=== PATIENT | female | born 1980 | race African-American/Black ===

== ENCOUNTER → 2020-04-22 | Outpatient (CLI) | payer OTHER ==
--- NOTE | 2020-04-22 11:43 | DIREP ---
PROCEDURE:US OB 2 3TRI DETAILED TRANSABD COMPARISON:None. INDICATIONS:FIRST , UNSPECIFIED TRIMESTER TECHNIQUE:Transabdominal sonography of the gravid uterus was performed. FINDINGS: NUMBER: Single. POSITION: Cephalic. AMNIOTIC FLUID VOLUME: KATHI/LVP: 1.7 cm oligohydramnios PLACENTAL LOCATION: Anterior. No previa. CERVICAL LENGTH: Normal transabdominal appearance. HEART RATE: 147 bpm BIPARIETAL DIAMETER: 4.5 cm, (19 weeks, 3 days) HEAD CIRCUMFERENCE: 17.2 cm,(19 weeks, 5 days) ABD CIRCUMFERENCE: 26.3 cm,(30 weeks, 3 days) FEMUR LENGTH:2.9 cm, (18 weeks, 6 days) EFW: 733.0 g ANATOMY: CEREBELLUM: 2.1 cm NUCHAL FOLD: Abnormal. 18 mm CISTERNA MAGNA: 6.5 mm LATERAL VENTRICLES: Abnormal. 11 mm CHOROID PLEXUS: Normal. MIDLINE FALX: Normal. CAVUM SEPTUM PELLUCIDUM: Suboptimal. Septal leaves seen adequately anteriorly, et vergae configuration suspected but integrity of the corpus callosum cannot be confirmed. 4 CHAMBER VIEW OF HEART:Abnormal. Four-chamber heart is abnormal. Add usually, bilateral large pleural effusions are present. UPPER LIP: Suboptimal. STOMACH: Normal. KIDNEYS: Suboptimal. Not visualized. BLADDER: Suboptimal. Not visualized. CORD INSERTION: Suboptimal. CORD VESSEL NUMBER: Suboptimal. SPINE: Suboptimal. EXTREMITIES: Suboptimal. OTHER: Large abdominal ascites. Soft tissue anasarca. Anatomy seen suboptimally above is related to condition. ULTRASOUND AGE: 22 weeks, 1 days ULTRASOUND EVARISTO: August 25, 2020 LMP: 12/13/2019 CLINICAL AGE: 18 weeks, 5 days CLINICAL EVARISTO: September 18, 2020 CONCLUSION: 1. Single live intrauterine . 2. Hydropic fetus. Images of the four-chamber heart are abnormal. There is anasarca, pleural effusions and large ascites. Kidneys and bladder not visualized. Ventriculomegaly is noted. Underlying aneuploid/genetic condition should be considered. 3. Oligohydramnios. The discordance in provided dating is related to the anasarca present and disproportionate abdominal circumference due to the ascites. Would use the clinical dates provided above for future management. M consultation with targeted ultrasound and echocardiography should be considered to confirm diagnosis, genetic testing and future management. Dictated by: [facility] Physician on 04/22/2020 at 11:02 AM ac
== END | disposition home or self-care (01) ==
LOC: RAD 09:42
PROVIDERS: ATTEND Obstetrics & Gynecology
DX: O09.512 Supervision of elderly primigravida, second trimester (principal); O41.02X0 Oligohydramnios, second trimester, not applicable or unspecified; J90 Pleural effusion, not elsewhere classified; Z3A.22 22 weeks gestation of pregnancy
CPT/HCPCS: 76805; 76817

== ENCOUNTER 2020-05-20 10:08 | Inpatient (IN) | payer OTHER ==
[~2020-05-20] VITALS: Ht 162.6 cm; Wt 68.0 kg
[2020-05-20] MEDS ORDERED: LACTATED RINGERS 1,000 ML ONE (10:22)
[2020-05-20] MEDS ORDERED: OXYTOCIN 30 UNIT/NS 500 ML 500 ML IV ONE (10:22)
[2020-05-20] MEDS ORDERED: LIDOCAINE 1% VIAL ONE (10:23)
[2020-05-20] MEDS ORDERED: WATER ONE (10:23)
[2020-05-20 10:30] VITALS: BP 107/56
[2020-05-20 10:45] LABS: BASOPHIL % 0.6 % (0.0-0.2); EOSINOPHIL # 0.2 10^3/uL (0.0-0.2); EOSINOPHIL % 4.3 % (0.0-5.0); LYMPHOCYTES % 35.4 % (24.0-44.0); MEAN CORP HGB 28.4 pg (26-34); MONOCYTES # 0.5 10^3/uL (0.3-0.8); MONOCYTES % 8.4 % (5.0-12.0); NEUTROPHIL # 2.7 10^3/uL (1.8-7.7); NEUTROPHILS % 51.1 % (41.0-85.0); PLATELET COUNT 367 10^3/uL (150-400); RED CELL DISTRIBUTION WIDTH 12.4 % (11.5-14.5)
[2020-05-20] MEDS: CYTOTEC PV SCH ×3 (10:54→23:02)
[2020-05-20] MEDS ORDERED: ATARAX ONE (13:18)
[2020-05-20] MEDS: ATARAX PO PRN (13:20)
--- NOTE | 2020-05-20 13:21 | PCM.HP ---
HISTORY & PHYSICAL HISTORY & PHYSICAL DATE OF ADMISSION: 05/20/20 CHIEF COMPLAINT: demise HISTORY OF PRESENT ILLNESS: 39 year old G 1 at 22 5/7 weeks with demise since 05/13/20. No contractions/LOF/VB. PNC notable for late care, AMA, ultrasound with multiple anomalies. PAST MEDICAL HISTORY: None SURGICAL HISTORY: None CURRENT MEDICATIONS: None ALLERGIES: NKDA FAMILY HISTORY: DM, CVA, stroke, lung CA, HTN, asthma SOCIAL HISTORY: no E/T/D, no STD Hx REVIEW OF SYSTEMS: CONST:No fever, fatigue, or weight changes. EYES: No recent vision problems. ENT: No congestion, ear pain, or sore throat. C/V: No chest pain, palpitations, or edema. RESP: No cough, congestion, wheezing or shortness of breath. GI: No constipation, or diarrhea. : No incontinence or dysuria. M/S: No joint pain or swelling. SKIN: No rash. NEURO: No headache, focal numbness or weakness, dizziness, or seizures. PSYCH: No depression or anxiety. ENDO: No thyroid problems. No polyuria or polydipsia. HEME: No abnormal bruising or bleeding. LYMPH: No swollen glands. IMMUN: No itching or hives. PHYSICAL EXAM: VITALS: Vital Signs Date Time Temp Pulse Resp B/P (MAP) Pulse Ox O2 Delivery O2 Flow Rate FiO2 05/20/20 10:30 98.5 85 18 Room Air Allergies Coded Allergies No Known Allergies ([id number]/11/20) Blood Bank Test 05/20/20 10:30 Antibody Screen NEGATIVE Blood Type O POSITIVE Current Medications Medications (Trade) Dose Ordered Sig/Kathrine Route Start Time Stop Time Status Last Admin Dose Admin Misoprostol (Cytotec) 100 mcg Q6HR PV 05/20/20 12:00 06/19/20 11:59 05/20/20 10:54 100 MCG GENERAL: No acute distress, non-toxic appearing HEAD: Normal with no signs of head trauma. ENT: Hearing grossly intact, normal oropharynx. NECK: Supple, no tenderness, no lymphadenopathy, no masses, no thyromegaly LUNGS: Clear breath sounds. Heart: Reg rate. ABD: Bowel sounds normal, soft, nontender, no masses, no organomegaly LYMPH: No lymphadenopathy noted. : SVE: closed/thick/high (per nurse) at time of cytotec placement EXT: Intact x 4 SKIN: No rashes or lesions. NEURO: Alert and oriented x3. Normal affect. ASSESSMENT: IUFD at 22 weeks PLAN: Admit for induction. I discussed with the patient the plan of care (pain control, course of delivery, Cytotec for placental delivery unless surgical intervention warranted). She verbalized good understanding. All questions answered. NAPOLEON CARLISLE MD May 20, 2020 13:21
[2020-05-20] MEDS ORDERED: CYTOTEC ONE ×2 (16:54→22:55)
[2020-05-21] MEDS ORDERED: DEMEROL ONE ×3 (01:42→20:25)
[2020-05-21] MEDS: DEMEROL IV PRN ×3 (01:48→20:28)
[2020-05-21] MEDS ORDERED: CYTOTEC ONE ×4 (04:57→23:06)
[2020-05-21] MEDS: CYTOTEC PV SCH ×4 (04:58→23:15)
--- NOTE | 2020-05-21 07:27 | PRM.PN ---
PROGRESS NOTE S/O/A/P DATE: 05/21/20 S: Starting to feel more discomfort (okay with Demerol, requesting heating pad). No N/V. O: Vital Signs Date Time Temp Pulse Resp B/P (MAP) Pulse Ox O2 Delivery O2 Flow Rate FiO2 05/20/20 10:30 98.5 85 18 Room Air Allergies Coded Allergies No Known Allergies (Rbovnhwrvt44/11/20) Blood Bank Test 05/20/20 10:30 Antibody Screen NEGATIVE Blood Type O POSITIVE Current Medications Medications (Trade) Dose Ordered Sig/Kathrine Route Start Time Stop Time Status Last Admin Dose Admin Hydroxyzine HCl (Atarax) 100 mg HS PRN PO 05/20/20 10:30 06/19/20 10:29 05/20/20 13:20 100 MG Meperidine HCl (Demerol) 50 mg Q3HR PRN IV 05/20/20 10:30 06/19/20 10:29 05/21/20 01:48 50 MG Misoprostol (Cytotec) 100 mcg Q6HR PV 05/20/20 12:00 06/19/20 11:59 05/21/20 04:58 100 MCG General: A&O x 4, no respiratory distress, comfortable Abdomen: soft, non-tender last Cytotec placed at 0500 by nurse (closed, softer) A: IUFD induction, stable P: Continue Cytotec induction, supportive care, heating pad prn, patient encouraged to ask for an epidural if she would like. NAPOLEON CARLISLE MD May 21, 2020 07:27
[2020-05-22] MEDS: CYTOTEC PO SCH ×2 (05:04→11:15)
[2020-05-22] MEDS: CYTOTEC PV SCH ×2 (05:07→11:16)
[2020-05-22] MEDS ORDERED: DEMEROL ONE ×3 (06:15→13:09)
[2020-05-22] MEDS: DEMEROL IV PRN ×3 (06:19→13:18)
--- NOTE | 2020-05-22 07:34 | PRM.PN ---
PROGRESS NOTE S/O/A/P DATE: 05/21/20 S: No cramps. No N/V. O: Vital Signs Date Time Temp Pulse Resp B/P (MAP) Pulse Ox O2 Delivery O2 Flow Rate FiO2 05/20/20 10:30 98.5 85 18 Room Air Allergies Coded Allergies No Known Allergies (Gewpzpqyuh71/11/20) Current Medications Medications (Trade) Dose Ordered Sig/Kathrine Route Start Time Stop Time Status Last Admin Dose Admin Misoprostol (Cytotec) 100 mcg Q6 PO 05/22/20 06:00 06/21/20 05:59 UNV 05/22/20 05:04 100 MCG General: A&O x 4, no respiratory distress, comfortable Abdomen: soft, non-tender last Cytotec placed at 0500 by nurse (FT, 60% effaced) A: IUFD induction, stable P: Continue Cytotec induction (added oral as well today - apprised pt of diarrhea side effect), supportive care, patient encouraged to ask for an epidural if she would like. NAPOLEON CARLISLE MD May 21, 2020 07:27 NAPOLEON CARLISLE MD May 22, 2020 07:34
[2020-05-22] MEDS ORDERED: CYTOTEC ONE (11:09)
[2020-05-22] MEDS: ATARAX PO PRN (11:20)
[2020-05-22] MEDS ORDERED: ATARAX ONE (11:20)
[2020-05-22] MEDS ORDERED: MORPHINE SULFATE IV PRN ×2 (11:50→16:30)
[2020-05-22] MEDS ORDERED: PHENERGAN IV PRN (11:50)
[2020-05-22] MEDS ORDERED: PHENERGAN ONE (11:51)
[2020-05-22] MEDS ORDERED: MORPHINE SULFATE ONE (11:52)
[2020-05-22] MEDS ORDERED: PITOCIN ONE (12:47)
[2020-05-22] MEDS: CYTOTEC PV PRN ×2 (13:17→17:01)
--- NOTE | 2020-05-22 13:20 | PCM.OBDEL1 ---
OPERATIVE REPORT OPERATIVE REPORT DATE: 05/22/20 Called by nurse that is delivering intact in the membranes. Upon my arrival, SROM (brown, non-foul fluid), breech delivery. Non-viable, demise noted. Cord clamped x 2, cut and given to nursing personnel. 50 mcg of Cytotec placed intravaginally, will repeat q 4 hours until delivery of the placenta. EBL none. Patient apprised of the situation, will plan to deliver the placenta spontaneously unless she is hemodynamically unstable or hemorrhaging. Currently on Demerol or Morphine for pain control. I reiterated the option of epidural if she wants to use this. No lacerations of the vagina/vulva noted grossly. Gross examination of the showed fused eyes, prominent cystic bulging on the anterior and posterior neck, 2 arms and legs, no obvious back/skin defect, + rectum, + opened mouth, flailed chest, no abdominal wall musculature, female external genitalia. Supportive care given. NAPOLEON CARLISLE MD May 22, 2020 13:20
[2020-05-22] MEDS ORDERED: PITOCIN IM ONE (19:11)
--- NOTE | 2020-05-22 19:47 | PCM.OBDEL1 ---
OPERATIVE REPORT OPERATIVE REPORT I was notified that the patient went up to the bathroom, the placenta delivered without any bleeding thereafter. Appropriate spirits, supportive care offered. NAPOLEON CARLISLE MD May 22, 2020 19:47
[2020-05-22] MEDS ORDERED: TYLENOL PO PRN (20:00)
[2020-05-22] MEDS ORDERED: MOTRIN PO PRN (20:00)
[2020-05-22] MEDS ORDERED: TUCKS TP PRN (20:00)
[2020-05-22] MEDS ORDERED: MYLANTA PO PRN (20:00)
[2020-05-22] MEDS ORDERED: DERMOPLAST SPRAY TP PRN (20:00)
[2020-05-22] MEDS ORDERED: NORCO 5MG PO PRN ×2 (20:00)
[2020-05-22] MEDS ORDERED: LANOLIN HYDROUS TP PRN (20:00)
[2020-05-22] MEDS ORDERED: OXYTOCIN 30 UNIT/NS 500 ML 500 ML IV SCH ×3 (20:00)
[2020-05-22] MEDS ORDERED: COLACE PO SCH (21:00)
[2020-05-22] MEDS ORDERED: COLACE PO ONE (23:33)
[2020-05-23 06:17] VITALS: BP 108/55
[2020-05-23 06:44] LABS: BASOPHIL % 0.3 % (0.0-0.2); EOSINOPHIL # 0.3 10^3/uL (0.0-0.2); EOSINOPHIL % 4.2 % (0.0-5.0); LYMPHOCYTES # 1.47 10^3/uL1 (1.0-4.8); LYMPHOCYTES % 19.7 % (24.0-44.0); MEAN CORP HGB 29.2 pg (26-34); MONOCYTES # 0.6 10^3/uL (0.3-0.8); MONOCYTES % 7.4 % (5.0-12.0); NEUTROPHIL # 5.1 10^3/uL (1.8-7.7); NEUTROPHILS % 68.3 % (41.0-85.0); PLATELET COUNT 325 10^3/uL (150-400); RED CELL DISTRIBUTION WIDTH 12.6 % (11.5-14.5)
--- NOTE | 2020-05-23 07:47 | PRM.PN ---
PROGRESS NOTE S/O/A/P DATE: 05/23/20 S: + Ambulate/void/tolerating reg diet/BM. No pain. Appropriately sad. O: Vital Signs Date Time Temp Pulse Resp B/P (MAP) Pulse Ox O2 Delivery O2 Flow Rate FiO2 05/23/20 06:17 98.8 79 18 98 Room Air Allergies Coded Allergies No Known Allergies ([id number]/11/20) Current Medications Medications (Trade) Dose Ordered Sig/Kathrine Route Start Time Stop Time Status Last Admin Dose Admin Promethazine HCl (Phenergan) 12.5 mg Q3HR PRN IV 05/22/20 11:50 05/22/20 23:03 DC 05/22/20 12:14 12.5 MG Morphine Sulfate (Morphine Sulfate) 2 mg Q1HR PRN IV 05/22/20 16:30 05/22/20 23:03 DC 05/22/20 12:14 2 MG Docusate Sodium (Colace) 100 mg HS PO 05/22/20 21:00 06/21/20 20:59 05/22/20 23:34 100 MG Oxytocin (Pitocin) 10 unit OT ONCE IM 05/22/20 19:11 05/22/20 23:03 DC 05/22/20 19:11 10 UNIT General: A&O x 4, no respiratory distress, comfortable Abdomen: soft, non-tender A: PPD #1, stable/recovering P: Routine care, discharge home today, Patient desires to return to work today due to work stipulations (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 Rx Fe, F/U [address] Sandoval. NAPOLEON CARLISLE MD May 23, 2020 07:47
--- NOTE | 2020-05-23 07:50 | PRM.DC ---
DISCHARGE SUMMARY Y DATE OF ADMISSION: 05/20/20 DATE OF DISCHARGE: 05/23/20 ADMITTING DIAGNOSIS: 1. 39 year old G 1 at 22 5/7 weeks with demise since 05/13/20. 2. Late care. 3. AMA. 4. Anemia. 5. Multiple anomalies. DISCHARGE DIAGNOSIS: 1. Status-post vaginal delivery. 2. Rest are the same. CONSULTS: None PROCEDURES & DATES: Spontaneous vaginal delivery 05/22/20. HOSPITAL COURSE: 39 year old G 1 at 22 5/7 weeks with demise since 05/13/20, multiple anomalies who was admitted for induction. Please see the delivery summary for details. She was subsequently sent to for the rest of her care. There, she was ambulating without difficulty, voiding spontaneously, tolerating regular diet without nausea/vomiting, with good return of bowel function. Her pain was appropriately controlled. Her vital signs were stable and afebrile throughout her hospital course. Abdomen: on the day of discharge, her abdomen was soft. Hemoglobin and Hematocrit before surgery was 9.9 and 30.5, after was 8.9 and 26.9. MEDICATIONS: Fe DISPOSITION: Stable to home. PLAN: Follow-Up with Dr. Sandoval in 1 week. NAPOLEON CARLISLE MD May 23, 2020 07:50
[2020-05-23] MEDS ORDERED: FERR325T15 PO (07:54)
--- NOTE | 2020-05-23 07:54 | PRM.DC ---
OB Discharge Summary Discharge Summary Assessment & Plan See Discharge Summary Note. NAPOLEON CARLISLE MD May 23, 2020 07:54
[2020-05-23 08:05] VITALS: BP 107/53
== END 2020-05-23 08:40 | disposition home or self-care (01) | DRG 807 ==
LOC: LND 10:08 → EEVIPCON 10:08
PROVIDERS: ADMIT Obstetrics & Gynecology; ATTEND Obstetrics & Gynecology
PROC: 10E0XZZ Delivery of Products of Conception, External Approach (ICD-10-PCS; principal; 2020-05-22)
PROC: 3E0P7VZ Introduction of Hormone into Female Reproductive, Via Natural or Artificial Opening (ICD-10-PCS; 2020-05-22)
DX: O36.4XX0 Maternal care for intrauterine death, not applicable or unspecified (principal); Z37.1 Single stillbirth; O35.9XX0 Maternal care for (suspected) fetal abnormality and damage, unspecified, not applicable or unspecified; Z3A.22 22 weeks gestation of pregnancy; Z80.1 Family history of malignant neoplasm of trachea, bronchus and lung; Z82.3 Family history of stroke; Z82.49 Family history of ischemic heart disease and other diseases of the circulatory system; Z82.5 Family history of asthma and other chronic lower respiratory diseases; Z83.3 Family history of diabetes mellitus; D64.9 Anemia, unspecified; O99.02 Anemia complicating childbirth
CPT/HCPCS: 36415; 59400; 85025; 86900; 96372; G0378; J2001; J2175; J2270; J2550; J2590; J7120